=== PATIENT | female | born 1940 | race Caucasian/White ===

== ENCOUNTER → 2020-12-03 | Day surgery (SDC) | payer OTHER ==
[~2020-12-03] MED LIST: ALTACE10 MG PO; ASCORBIC ACID500 MG PO; ASPIRIN EC81 MG PO; CRESTOR10 MG PO; MOTRIN600 MG PO; PRILOSEC20 MG PO; VESICARE5 MG PO; VITAMIN B-121000 MC1 SC; VITAMIN D310 MCG PO
[2020-12-03 10:20] LABS: HCT 36.9 % (37.0-47.0); MCH 30.2 pg (25.0-31.0); MCHC 32.5 g/dL (32.0-36.0); MCV 92.7 fL (78.0-100.0); MPV 10.6 fL (6.0-9.5); RBC 3.98 M/uL (4.20-5.40); RDW 12.5 % (11.5-14.0)
[2020-12-03 10:38] LABS: BUN/CREAT RATIO (CALC) 21.2 RATIO; CREATININE 0.99 mg/dL (0.51-0.95); POTASSIUM 3.8 mmol/L (3.5-5.1)
== END | disposition home or self-care (01) ==
LOC: FAS 09:15
PROVIDERS: Legal Medicine
DX: S52.571A Other intraarticular fracture of lower end of right radius, initial encounter for closed fracture (principal); K21.9 Gastro-esophageal reflux disease without esophagitis; I10 Essential (primary) hypertension; Z20.822 Contact with and (suspected) exposure to COVID-19; Z90.11 Acquired absence of right breast and nipple; Z98.890 Other specified postprocedural states; Z90.711 Acquired absence of uterus with remaining cervical stump; Z88.0 Allergy status to penicillin; Z79.899 Other long term (current) drug therapy; W19.XXXA Unspecified fall, initial encounter
CPT/HCPCS: 36415; 73100; 76000; 80048; 93005; C1713; J2250; J2405; J2704; J2795; J3010; J7120